=== PATIENT | female | born 1980 | race Caucasian/White ===

== ENCOUNTER 2018-07-28 16:55 | Emergency (ER) | payer SELFPAY ==
[~2018-07-28] VITALS: Ht 157.5 cm; Wt 75.7 kg
--- NOTE | 2018-07-28 17:49 | NUR ---
PT PRESENTED TO THE ER WITH A C/O HEADACHE AND LOWER BACK PAIN S/P GLF WHILE [employer] SHOPPING 2 DAYS AGO. PT WAS TRIAGED AND TAKEN TO ROOM #14 VIA WC. PT WAS PLACED ON THE MONITOR AND CONTINUOUS PULSE OX.
--- NOTE | 2018-07-28 17:49 | NUR ---
PT PRESENTED TO THE ER WITH A C/O HEADACHE, LOWER BACK PAIN AND DIZZINESS S/P GLF 2 DAYS AGO. PT WAS TRIAGED AND TAKEN TO ROOM #14 VIA WC. PT WAS PLACED ON THE MONITOR AND CONTINUOUS PULSE OX. WILL CONTINUE TO MONITOR THE PT.
[2018-07-28] MEDS ORDERED: HYDROCODONE/APAP 5/325MG 1 EACH TABLET ONE ×2 (18:19→18:21)
[2018-07-28] MEDS ORDERED: HYDROCODONE/APAP 5/325MG 1 EACH TABLET PO ONE (18:30)
--- NOTE | 2018-07-28 18:38 | NUR ---
PT LEFT FOR CT VIA GURNEY.
--- NOTE | 2018-07-28 18:52 | NUR ---
PT RETURNED FROM CT.
--- NOTE | 2018-07-28 20:11 | NUR ---
Patient discharged to home in stable condition. Written and verbal after care instructions given. Patient verbalizes understanding of instruction AND RX. PT WAS INSTRUCTED NOT TO DRIVE. PT AMBULATED OUT WITH A SLOW STEADY GAIT.
[2018-07-28 20:13] VITALS: BP 145/93
== END 2018-07-28 20:15 | disposition home or self-care (01) ==
LOC: ER 16:55
DX: S39.012A Strain of muscle, fascia and tendon of lower back, initial encounter (principal); S09.8XXA Other specified injuries of head, initial encounter; K42.9 Umbilical hernia without obstruction or gangrene; F41.9 Anxiety disorder, unspecified; Z88.0 Allergy status to penicillin; W01.198A Fall on same level from slipping, tripping and stumbling with subsequent striking against other object, initial encounter; Y93.89 Activity, other specified; Y92.89 Other specified places as the place of occurrence of the external cause; Y99.8 Other external cause status
CPT/HCPCS: 70450-TC